=== PATIENT | female | born 1990 | race Two or more races ===

== ENCOUNTER 2023-03-26 06:42 | Day surgery (SDC) | payer OTHER, SELFPAY ==
[2023-03-26] VITALS (34 sets, daily range): BP systolic 101–132; BP diastolic 55–78; PULSE 63–94; RESP 14–16; TEMP 36.5–36.9; O2SAT 95–99; BMI 35.0
--- NOTE | 2023-03-26 07:11 | CRLHL7_ITS ---
For Patients: As a result of the Cures Act, medical imaging exams and procedure reports are released immediately into your electronic medical record. You may view this report before your referring provider. If you have questions, please contact your health care provider. INDICATION: Postprandial right upper quadrant pain. TECHNIQUE: Ultrasound abdomen limited. Sonographic images of the right upper quadrant were obtained using angel-scale and color Doppler images. COMPARISON: Reference is made to recent prior abdominal CT report dated 02/25/2023 which is not available for direct comparison at the time of this dictation. FINDINGS: Liver: Diffuse mildly increased hepatic parenchymal echotexture consistent with hepatic steatosis.. No suspicious masses. No intrahepatic biliary dilatation. Gallbladder: Nonmobile 19 mm stone in the region of the gallbladder neck. Negative sonographic Blevins`s sign. Normal wall thickness. No pericholecystic fluid. Common bile duct: 6 mm. Pancreas: Unremarkable. Right kidney: Normal in size. Normal echotexture and cortex. No suspicious masses, stones, or hydronephrosis. Vasculature: Proximal abdominal aorta and IVC are unremarkable. IMPRESSION: Nonmobile stone in the gallbladder neck. Negative sonographic Blevins`s sign. No other secondary findings to indicate acute cholecystitis. Top normal common bile duct caliber is 6 mm. Dictated by Kyle Peña MD @ 03/26/2023 8:05:08 AM (Electronically Signed)
[2023-03-26] MEDS: KETOROLAC 15 MG/ML inj IVP (07:20)
[2023-03-26] MEDS: ONDANSETRON 2 MG/ML inj 4 MG IVP (07:24)
--- NOTE | 2023-03-26 07:30 | ED_ITS ---
HPI - Abdominal Pain General Chief Complaint: Abdominal Pain <Noemi Valentin MD - Last Filed: 03/29/23 00:00> Stated Complaint: upper right side pain <Noemi Valentin MD - Last Filed: 03/29/23 00:00> Time Seen by Provider: 03/26/23 06:48 <Noemi Valentin MD - Last Filed: 03/29/23 00:00> Source: patient <Noemi Valentin MD - Last Filed: 03/29/23 00:00> Mode of arrival: ambulatory <Noemi Valentin MD - Last Filed: 03/29/23 00:00> Limitations: no limitations <Noemi Valentin MD - Last Filed: 03/29/23 00:00> History of Present Illness HPI narrative: 33-year-old female presents the emergency department with pain that has been bothersome since 1:00 p.m. yesterday, about 18 hours. She reports that after lunch, she started having pain in the right posterior shoulder area, accompanied by nausea. It worsened further after she ate a cupcake and has been persistent ever since. There is no vomiting, no diarrhea. She does have some epigastric burning pain with this. She had extensive workup at [address] and I a.m. able to review those notes. Similar symptoms 1 month ago though the pain was more epigastric at the time. Ultimately her labs looked great, she was discharged after a CT scan on daily omeprazole and p.r.n. famo tidine which she has been using. She states that with those medications the epigastric area burning pain has completely gone away but the shoulder area pain persists but is quite intermittent. The CT scan did show that she had gallstones though no evidence of acute cholecystitis at that time. The rest of the CT findings were significant only for a slightly enlarged appendix which was thought to be an incidental finding, as she was not symptomatic in the lower pelvis nor is she today. She notes no dysuria, no diarrhea, no bleeding, no gynecological complaints. No cardiac symptoms. She has not tried taking any Tylenol or ibuprofen to help with her symptoms. She did try some Maalox, based on the instructions provided from the previous ED visit and this was not helpful for her. Past medical history is benign per her report, no major long-term health problems. Her only home medication is the daily omeprazole which she has continued to use and the p.r.n. famotidine which she has used a few times. She has had a wisdom tooth extraction but it sounds as though was not done under general anesthesia but rather with just laughing gas. She does have a family history of gallbladder disease, including in her mother. No anticoagulants. No prior history of anesthesia complications which she does not believe she has ever had general anesthesia. ROS is notable for the musculoskeletal and GI symptoms as described above, otherwise denies times 12 systems including any respiratory symptoms. <Noemi Valentin MD - Last Filed: 03/29/23 00:00> Related Data Home Medications: Home Medications Medication Instructions Recorded Confirmed famotidine 20 mg tablet 20 mg PO BID 03/26/23 03/26/23 omeprazole 20 mg capsule,delayed 20 mg PO DAILY 03/26/23 03/26/23 release Previous Rx's Medication Instructions Recorded hydrocodone 5 mg-acetaminophen 325 1 - 2 tab PO Q6H PRN Pain #20 tabs 03/26/23 mg tablet <Noemi Valentin MD - Last Filed: 03/29/23 00:00> Allergies/Adverse Reactions: Allergies Allergy/AdvReac Type Severity Reaction Status Date / Time minocycline [From Minocin] AdvReac Verified 03/26/23 06:58 <Noemi Valentin MD - Last Filed: 03/29/23 00:00> [facility] Medical History: Medical History GERD (gastroesophageal reflux disease) ?K21.9 - Gastro-esophageal reflux disease without esophagitis (ICD-10) LGSIL (low grade squamous intraepithelial dysplasia) ADAL I (cervical intraepithelial neoplasia I) ?N87.0 - Mild cervical dysplasia (ICD-10) Genital herpes ?A60.00 - Herpesviral infection of urogenital system, unspecified (ICD-10) ASCUS with positive high risk HPV <Noemi Valentin MD - Last Filed: 03/29/23 00:00> Surgical History: Surgical History History of colposcopy ?Z98.890 - Other specified postprocedural states (ICD-10) <Noemi Valentin MD - Last Filed: 03/29/23 00:00> Social History: Social History (Updated 03/26/23 @ 10:02 by Bushra Torres MD) Narrative: She does not drink alcohol. 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 Smoking Status: Never smoker Second hand tobacco smoke exposure: No How often do you have a drink containing alcohol: never How often do you have six or more drinks on one occasion: Never AUDIT-C Alcohol total score: 0 Non-prescribed substance use: denies use <Noemi Valentin MD - Last Filed: 03/29/23 00:00> Exam Const: Vital Signs, click to edit/add: Vital Signs - 24 hr 03/26/23 06:53 03/26/23 09:00 Temperature 98.0 F Pulse Rate [Left P ulse Oximeter] 82 78 Respiratory Rate 16 16 Blood Pressure [Ri ght Upper Arm] 132/78 108/55 L Pulse Oximetry 98 99 Oxygen Delivery Me thod Room Air Room Air <Noemi Valentin MD - Last Filed: 03/29/23 00:00> Vital Signs, click to edit/add: Vital Signs - 24 hr 03/26/23 06:53 03/26/23 09:00 Temperature 98.0 F Pulse Rate [Left P ulse Oximeter] 82 78 Respiratory Rate 16 16 Blood Pressure [Ri ght Upper Arm] 132/78 108/55 L Pulse Oximetry 98 99 Oxygen Delivery Me thod Room Air Room Air <Kyrie King MD - Last Filed: 03/26/23 09:20> Documenting provider has reviewed patient's vital signs: yes <Noemi Valentin MD - Last Filed: 03/29/23 00:00> Common normals: no apparent distress <Noemi Valentin MD - Last Filed: 1 00:00> General appearance: cooperative and well kempt <Noemi Valentin MD - Last Filed: 03/29/23 00:00> Other: Good historian. <MD Janice Levi Last Filed: 03/29/23 00:00> HENMT: Common normals: normocephalic <MD Janice Levi Last Filed: 03/29/23 00:00> Head and scalp: normocephalic <MD Janice Levi Last Filed: 03/29/23 00:00> Mouth: oral and palatal mucosa normal <MD Janice Levi Last Filed: 03/29/23 00:00> Throat: posterior oropharynx normal <MD Janice Levi Last Filed: 03/29/23 00:00> Eye: Common normals: conjunctivae normal <MD Janice Levi Last Filed: 03/29/23 00:00> General eye: normal appearance of both eyes <MD Janice Levi Last Filed: 03/29/23 00:00> Conjunctiva: conjunctiva(e) normal <MD Janice Levi Last Filed: 03/29/23 00:00> Neck & C-Spine: Common normals: no lymphadenopathy <MD Janice Levi Last Filed: 03/29/23 00:00> General: normal visual inspection <MD Janice Levi Last Filed: 03/29/23 00:00> Resp: Common normals: normal respiratory effort, no use of accessory muscles and clear to auscultation bilaterally <MD Janice Levi Last Filed: 03/29/23 00:00> Effort & inspection: able to speak in complete sentences <MD Janice Levi Last Filed: 03/29/23 00:00> Auscultation: clear to auscultation bilaterally <MD Janice Levi Last Filed: 03/29/23 00:00> Cardio: Common normals: regular rate, regular rhythm, S1 normal heart sound, S2 normal heart sound and no murmurs <MD Janice Levi Last Filed: 03/29/23 00:00> Rate: regular rate <MD Janice Levi Last Filed: 03/29/23 00:00> Rhythm: regular rhythm <MD Janice Levi Last Filed: 03/29/23 00:00> Heart sounds: S1 normal and S2 normal <MD Janice Levi Last Filed: 03/29/23 00:00> GI: Common normals: Normal to inspection, nondistended, normoactive bowel sounds present, soft to palpation, no hepatosplenomegaly and no masses <MD Janice Levi Last Filed: 03/29/23 00:00> Palpation: soft and no hepatosplenomegaly <MD Janice Levi Last Filed: 03/29/23 00:00> Other: Tender palpation of right upper quadrant, mildly positive Blevins sign for me. No obvious mass <MD Janice Levi Last Filed: 03/29/23 00:00> : Common normals: no CVA tenderness <MD Janice Levi Last Filed: 03/29/23 00:00> Bladder/kidney exam: no CVA tenderness <MD Janice Levi Last Filed: 03/29/23 00:00> Back & Pelvis: Common normals: no CVA tenderness <MD Janice Levi Last Filed: 03/29/23 00:00> Extremity: Common normals: normal to inspection <MD Janice Levi Last Filed: 03/29/23 00:00> Neuro: Speech: speech normal <MD Janice Levi Last Filed: 03/29/23 00:00> Gait (neuro): normal gait <MD Janice Levi Last Filed: 03/29/23 00:00> Motor exam: no tremor noted <MD Janice Levi Last Filed: 03/29/23 00:00> Psych: Common normals: speech normal <MD Jancie Levi Last Filed: 03/29/23 00:00> Appearance: well kempt <MD Janice Levi Last Filed: 03/29/23 00:00> Activity/motor behavior: appropriate eye contact <Noemi Valentin MD - Last Filed: 03/29/23 00:00> Speech: normal speech <Noemi Valentin MD - Last Filed: 03/29/23 00:00> Mood and affect: euthymic mood <Noemi Valentin MD - Last Filed: 03/29/23 00:00> Insight: insight good <Noemi Valentin MD - Last Filed: 03/29/23 00:00> Judgement: judgment good <Noemi Valentin MD - Last Filed: 03/29/23 00:00> Skin: Common normals: no rashes or lesions noted <Noemi Valentin MD - Last Filed: 03/29/23 00:00> General skin exam: no rashes or lesions noted <Noemi Valentin MD - Last Filed: 03/29/23 00:00> Course Course ED Course: Differential diagnosis including pancreatitis, cholecystitis, choledocholithiasis, biliary dyskinesia, GERD, constipation, colitis, appendicitis, among others. Suspect gallbladder disease most likely. Recommend abdominal ultrasound. Will be given Zofran and Toradol for pain control, IV will be placed. Basic screening labs. Await findings. Will be handing care of patient off to my in coming day shift partner. <Noemi Valentin MD - Last Filed: 03/29/23 00:00> Reevaluation(s) Time of Reevaluation #1: 08:17 <Noemi Valentin MD - Last Filed: 03/29/23 00:00> Reevaluation #1: Discussed plan of care with patient. Symptomatic gallstone in gallbladder neck noted. Discussed with surgeon on-call. Surgeon will come talk with patient and discuss procedure. Patient comfortable at this time. I will hand over care to my in coming day shift partner. Anticipate that she will be undergoing cholecystectomy. NPO. Pain improved with Toradol and Zofran. <Noemi Valentin MD - Last Filed: 03/29/23 00:00> Time of Reevaluation #2: 09:18 <Kyrie King MD - Last Filed: 03/26/23 09:20> Reevaluation #2: Surgeon Dr. Torres came to assess and anticipates going to the OR shortly for cholecystectomy. <Kyrie King MD - Last Filed: 03/26/23 09:20> Vital Signs Vital signs: Initial Vital Signs Temperature 98.0 F 03/26/23 06:53 Temperature Source Temporal Artery Scan 03/26/23 06:53 Pulse Rate 82 03/26/23 06:53 Respiratory Rate 16 03/26/23 06:53 Blood Pressure 132/78 03/26/23 06:53 Blood Pressure Mean 96 03/26/23 06:53 Blood Pressure Position Sitting 03/26/23 06:53 Pulse Oximetry 98 03/26/23 06:53 Oxygen Delivery Method Room Air 03/26/23 06:53 Vital Signs Temperature 98.0 F 03/26/23 06:53 Pulse Rate 82 03/26/23 06:53 Respiratory Rate 16 03/26/23 06:53 Blood Pressure 132/78 03/26/23 06:53 Pulse Oximetry 98 03/26/23 06:53 Oxygen Delivery Method Room Air 03/26/23 06:53 Temperature 97.7 F 03/26/23 12:20 Pulse Rate 75 03/26/23 13:45 Respiratory Rate 16 03/26/23 13:45 Blood Pressure 108/66 03/26/23 13:45 Pulse Oximetry 98 03/26/23 13:45 Oxygen Delivery Method Room Air 03/26/23 13:45 <Noemi Valentin MD - Last Filed: 03/29/23 00:00> Initial Vital Signs Temperature 98.0 F 03/26/23 06:53 Temperature Source Temporal Artery Scan 03/26/23 06:53 Pulse Rate 82 03/26/23 06:53 Respiratory Rate 16 03/26/23 06:53 Blood Pressure 132/78 03/26/23 06:53 Blood Pressure Mean 96 03/26/23 06:53 Blood Pressure Position Sitting 03/26/23 06:53 Pulse Oximetry 98 03/26/23 06:53 Oxygen Delivery Method Room Air 03/26/23 06:53 Vital Signs Temperature 98.0 F 03/26/23 06:53 Pulse Rate 82 03/26/23 06:53 Respiratory Rate 16 03/26/23 06:53 Blood Pressure 132/78 03/26/23 06:53 Pulse Oximetry 98 03/26/23 06:53 Oxygen Delivery Method Room Air 03/26/23 06:53 Temperature 97.7 F 03/26/23 12:20 Pulse Rate 75 03/26/23 13:45 Respiratory Rate 16 03/26/23 13:45 Blood Pressure 108/66 03/26/23 13:45 Pulse Oximetry 98 03/26/23 13:45 Oxygen Delivery Method Room Air 03/26/23 13:45 <Kyrie King MD - Last Filed: 03/26/23 09:20> MDM - Abdominal Pain Medical Records Attestation: I reviewed the patient's medical records. <Noemi Valentin MD - Last Filed: 03/29/23 00:00> Medical records narrative: From [place] [id number] ED <Noemi Valentin MD - Last Filed: 03/29/23 00:00> Lab Data Attestation: I reviewed the patient's lab results. <Noemi Valentin MD - Last Filed: 03/29/23 00:00> Lab results narrative: Mildly elevated AST, ALT. No other evidence of inflammation or leukocytosis. No pancreatitis. <Noemi Valentin MD - Last Filed: 03/29/23 00:00> Labs: Lab Results 03/26/23 Range/Units 07:20 WBC 8.93 (4.50-11.00) K/uL RBC 5.07 (4.00-5.20) m/uL Hgb 13.6 (12.0-16.0) gm/dL Hct 42.2 (33.0-51.0) % MCV 83 (80-100) fL MCH 27 (26-34) pg MCHC 32 (32-36) gm/dL RDW Coeff of Greg 13.2 (11.5-15.5) % Plt Count 422 (140-440) K/uL Neut % (Auto) 71.2 (42.0-72.0) % Lymph % (Auto) 22.7 (20-44) % [place] % (Auto) 4.8 (0.0-11.0) % Eos % (Auto) 1.0 (0.0-7.0) % Baso % (Auto) 0.2 (0.0-3.0) % Neut # (Auto) 6.35 (1.7-7.0) K/uL Lymph # (Auto) 2.03 (0.90-2.90) K/uL [place] # (Auto) 0.40 (0.00-0.90) K/UL Eos # (Auto) 0.09 (0.00-0.50) K/uL Baso # (Auto) 0.02 (0.00-0.30) K/uL Abs Immat Gran (auto) 0.01 (0.00-0.30) K/uL Imm/Tot Granulo (auto) 0.1 % Sodium 139 (135-149) mmol/L Potassium 4.0 (3.6-5.1) mmol/L Chloride 105 (96-114) mmol/L Carbon Dioxide 26 (20-32) mmol/L Anion Gap 8 (7-15) mEq/L BUN 7 (5-24) mg/dL Creatinine 0.6 (0.5-1.5) mg/dL Estimated Creat Clear 100.63 Estimated GFR 121 ml/min Glucose 94 (60-115) mg/dL Calcium 9.4 (8.4-10.6) mg/dL Total Bilirubin 0.7 (0.1-1.5) mg/dL AST 56 H (12-35) U/L ALT 75 H (4-35) U/L Alkaline Phosphatase 100 (40-150) U/L C-Reactive Protein 0.6 (0.5-1.0) mg/dL Total Protein 7.9 (6.0-8.3) g/dL Albumin 4.5 (3.3-5.0) g/dL Lipase 40 (23-300) U/L <Noemi Valentin MD - Last Filed: 03/29/23 00:00> Lab Results 03/26/23 Range/Units 07:20 WBC 8.93 (4.50-11.00) K/uL RBC 5.07 (4.00-5.20) m/uL Hgb 13.6 (12.0-16.0) gm/dL Hct 42.2 (33.0-51.0) % MCV 83 (80-100) fL MCH 27 (26-34) pg MCHC 32 (32-36) gm/dL RDW Coeff of Greg 13.2 (11.5-15.5) % Plt Count 422 (140-440) K/uL Neut % (Auto) 71.2 (42.0-72.0) % Lymph % (Auto) 22.7 (20-44) % [place] % (Auto) 4.8 (0.0-11.0) % Eos % (Auto) 1.0 (0.0-7.0) % Baso % (Auto) 0.2 (0.0-3.0) % Neut # (Auto) 6.35 (1.7-7.0) K/uL Lymph # (Auto) 2.03 (0.90-2.90) K/uL [place] # (Auto) 0.40 (0.00-0.90) K/UL Eos # (Auto) 0.09 (0.00-0.50) K/uL Baso # (Auto) 0.02 (0.00-0.30) K/uL Abs Immat Gran (auto) 0.01 (0.00-0.30) K/uL Imm/Tot Granulo (auto) 0.1 % Sodium 139 (135-149) mmol/L Potassium 4.0 (3.6-5.1) mmol/L Chloride 105 (96-114) mmol/L Carbon Dioxide 26 (20-32) mmol/L Anion Gap 8 (7-15) mEq/L BUN 7 (5-24) mg/dL Creatinine 0.6 (0.5-1.5) mg/dL Estimated Creat Clear 100.63 Estimated GFR 121 ml/min Glucose 94 (60-115) mg/dL Calcium 9.4 (8.4-10.6) mg/dL Total Bilirubin 0.7 (0.1-1.5) mg/dL AST 56 H (12-35) U/L ALT 75 H (4-35) U/L Alkaline Phosphatase 100 (40-150) U/L C-Reactive Protein 0.6 (0.5-1.0) mg/dL Total Protein 7.9 (6.0-8.3) g/dL Albumin 4.5 (3.3-5.0) g/dL Lipase 40 (23-300) U/L <Kyrie King MD - Last Filed: 03/26/23 09:20> Discharge Plan Discharge Clinical Impression: Choledocholithiasis <Noemi Valentin MD - Last Filed: 03/29/23 00:00> Patient Disposition: XFER to OR <Noemi Valentin MD - Last Filed: 03/29/23 00:00> Condition: Stable <Noemi Valentin MD - Last Filed: 03/29/23 00:00> Discharge Comment: taken to surgery at 1000 <Noemi Valentin MD - Last Filed: 03/29/23 00:00> taken to surgery at 1000 <Kyrie King MD - Last Filed: 03/26/23 09:20>
[2023-03-26 07:39] LABS: Basophils Absolute Auto 0.02 K/uL (0.00-0.30); Basophils Percent Auto 0.2 % (0.0-3.0); Eosinophils Absolute Auto 0.09 K/uL (0.00-0.50); Hematocrit 42.2 % (33.0-51.0); Hemoglobin* 13.6 gm/dL (12.0-16.0); Immature Granulocytes Abs Auto 0.01 K/uL (0.00-0.30); Immature Granulocytes Pct Auto 0.1 %; Lymphocytes Absolute Auto 2.03 K/uL (0.90-2.90); Lymphocytes Percent Auto 22.7 % (20-44); Mean Corpuscular HGB Conc 32 gm/dL (32-36); Mean Corpuscular Hemoglobin 27 pg (26-34); Mean Corpuscular Volume 83 fL (80-100); Monocytes Percent Auto 4.8 % (0.0-11.0); Neutrophils Absolute Auto 6.35 K/uL (1.7-7.0); Neutrophils Percent Auto 71.2 % (42.0-72.0); Platelet Count* 422 K/uL (140-440); RDW Coefficient of Variation % 13.2 % (11.5-15.5); Red Blood Count 5.07 m/uL (4.00-5.20); White Blood Count* 8.93 K/uL (4.50-11.00)
[2023-03-26 07:51] LABS: Slide Review Reflex No
[2023-03-26 08:00] LABS: Chloride* 105 mmol/L (96-114)
[2023-03-26 08:01] LABS: Albumin* 4.5 g/dL (3.3-5.0); Sodium* 139 mmol/L (135-149)
[2023-03-26 08:04] LABS: Alkaline Phosphatase* 100 U/L (40-150); Anion Gap 8 mEq/L (7-15); Aspartate Amino Transferase* 56 U/L (12-35); Bilirubin Total* 0.7 mg/dL (0.1-1.5); Blood Urea Nitrogen* 7 mg/dL (5-24); Carbon Dioxide* 26 mmol/L (20-32); Creatinine* 0.6 mg/dL (0.5-1.5); Est. Creatinine Clearance* 100.63; Estimated Glomerular Filt Rate 121 ml/min; Glucose* 94 mg/dL (60-115); Lipase* 40 U/L (23-300); Total Protein* 7.9 g/dL (6.0-8.3)
[2023-03-26 08:05] LABS: Alanine Aminotransferase* 75 U/L (4-35); Calcium* 9.4 mg/dL (8.4-10.6)
[2023-03-26 08:07] LABS: C Reactive Protein* 0.6 mg/dL (0.5-1.0)
--- NOTE | 2023-03-26 08:12 | PM.GSHP ---
History of Present Illness History of Present Illness Date Seen: 03/26/23 Chief complaint: upper right side pain Narrative: The patient is a 33-year-old female who presented to the emergency department with shoulder pain. She states that approximately 1 month ago she was seen at the ER in [place] with chest pain. Workup did reveal gallstones however was felt as though her symptoms were secondary to GERD. She was given omeprazole as well as famotidine to take p.r.n.. She then followed up with her primary care doctor who saw that she did have gallstones on CT. Since then she tried to change her diet, avoiding gluten, fatty foods and caffeine as well as chocolate. Yesterday she ate lunch in about 2 hours later developed pain in her back. This is primarily in her right shoulder. With this she occasionally has some right mid to upper quadrant abdominal pain. No change in bowel habits though they have been looser. She attributes this though to taking Tums. She tried taking Tums, Mylanta and the famotidine however this did not help her symptoms. She did have nausea as well yesterday. No fevers. She has some shortness of breath. No urinary symptoms. [facility] Medical History GERD (gastroesophageal reflux disease) ?K21.9 - Gastro-esophageal reflux disease without esophagitis (ICD-10) LGSIL (low grade squamous intraepithelial dysplasia) ADAL I (cervical intraepithelial neoplasia I) ?N87.0 - Mild cervical dysplasia (ICD-10) Genital herpes ?A60.00 - Herpesviral infection of urogenital system, unspecified (ICD-10) ASCUS with positive high risk HPV Surgical History History of colposcopy ?Z98.890 - Other specified postprocedural states (ICD-10) Social History (Updated 03/26/23 @ 10:02 by Bushra Torres MD) Narrative: She does not drink alcohol. 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 Smoking Status: Never smoker Second hand tobacco smoke exposure: No How often do you have a drink containing alcohol: never How often do you have six or more drinks on one occasion: Never AUDIT-C Alcohol total score: 0 Non-prescribed substance use: denies use Meds Home Medications and Allergies Home Medications Medication Instructions Recorded Confirmed Type famotidine 20 mg tablet 20 mg PO BID 03/26/23 03/26/23 History omeprazole 20 mg capsule,delayed 20 mg PO DAILY 03/26/23 03/26/23 History release Allergies Allergy/AdvReac Type Severity Reaction Status Date / Time minocycline [From Minocin] AdvReac Verified 03/26/23 06:58 Exam Narrative: Exam Narrative: General appearance: Alert, cooperative, and in no distress Eyes: PERRLA, eye lids clear, and sclera white HENT Head: Normocephalic Ears: External ears normal Pulmonary: Clear to auscultation bilaterally Cardiovascular Heart: Regular rate and rhythm Extremities: warm and well perfused Gastrointestinal Abdominal: No scars. No hernias. She is mildly tender in the right upper quadrant and mid abdomen. No guarding or rebound. Musculoskeletal: Extremities: Upper: Both upper extremities have normal joint range of motion and intact strength. Lower: Both lower extremities have normal joint range of motion and intact strength. Skin: Normal skin color, texture, and turgor. Neurologic: No focal deficits Psychiatric: Alert, oriented, cooperative, normal affect. Const: Vital Signs, click to edit/add: Vital Signs - 24 hr 03/26/23 06:53 Temperature 98.0 F Pulse Rate [Left P ulse Oximeter] 82 Respiratory Rate 16 Blood Pressure [Ri ght Upper Arm] 132/78 Pulse Oximetry 98 Oxygen Delivery Me thod Room Air Results Results Labs: White blood cell count is normal AST and ALT are mildly elevated at 56 and 75. The remainder of LFTs are normal. Lipase is normal. CRP is normal. Abdominal ultrasound report/results: report reviewed and image reviewed Additional studies: TECHNIQUE: Ultrasound abdomen limited. Sonographic images of the right upper quadrant were obtained using angel-scale and color Doppler images. COMPARISON: Reference is made to recent prior abdominal CT report dated 02/25/2023 which is not available for direct comparison at the time of this dictation. FINDINGS: Liver: Diffuse mildly increased hepatic parenchymal echotexture consistent with hepatic steatosis.. No suspicious masses. No intrahepatic biliary dilatation. Gallbladder: Nonmobile 19 mm stone in the region of the gallbladder neck. Negative sonographic Blevins`s sign. Normal wall thickness. No pericholecystic fluid. Common bile duct: 6 mm. Pancreas: Unremarkable. Right kidney: Normal in size. Normal echotexture and cortex. No suspicious masses, stones, or hydronephrosis. Vasculature: Proximal abdominal aorta and IVC are unremarkable. IMPRESSION: Nonmobile stone in the gallbladder neck. Negative sonographic Blevins`s sign. No other secondary findings to indicate acute cholecystitis. Top normal common bile duct caliber is 6 mm. Dictated by Kyle Peña MD @ 03/26/2023 8:05:08 A Assessment and Plan Assessment and plan (1) Cholelithiasis: Status: Acute (2) Choledocholithiasis: Status: Acute Plan The patient is a 33-year-old female who has likely early cholecystitis and possible choledocholithiasis. I explained that the treatment for this is laparoscopic cholecystectomy. We discussed the procedure as well as risks and benefits of surgery which include bleeding, infection, bile leak, conversion to open or injury to other structures, specifically the common bile duct. We also discussed recovery. Because of the patient's elevated liver enzymes and dilated common bile duct, I explained that there is concern for choledocholithiasis. We discussed an intraoperative cholangiogram followed by attempts to remove the stone by either flushing or laparoscopic common bile duct exploration. They understand that if unsuccessful, an ERCP may be necessary. She is agreeable to proceed and we will plan on surgery today.
--- NOTE | 2023-03-26 09:02 | ED.NURSE ---
Dr. Torres in speaking with patient.
--- NOTE | 2023-03-26 09:58 | W.ANESCHARGE ---
Anesthesia Charges Start Date/Time Anesthesia Start Date: 03/26/23 Anesthesia Start Time: 10:10 Stop Date/Time Anesthesia Stop Date: 03/26/23 Anesthesia Stop Time: 11:52
--- NOTE | 2023-03-26 10:00 | CRLHL7_ITS ---
For Patients: As a result of the Century Cures Act, medical imaging exams and procedure reports are released immediately into your electronic medical record. You may view this report before your referring provider. If you have questions, please contact your health care provider. INDICATION : Laparoscopic cholecystectomy. TECHNIQUE : Intraoperative cholangiogram. Contrast injected via gallbladder neck and cystic duct. FINDINGS : Fluoroscopy time was 34.7 seconds. 3 images were obtained. IMPRESSION : Normal caliber intra and extrahepatic ducts. No filling defects. Contrast seen within the duodenum. Normal intraoperative cholangiogram. Dictated by Kyrie Hood MD @ 03/26/2023 11:34:16 AM (Electronically Signed)
[2023-03-26] MEDS: LACTATED RINGERS 1000 ML 1,000 ML 75 ML IV (10:10)
--- NOTE | 2023-03-26 10:19 | ED.NURSE ---
Patient brought to surgery center.
[2023-03-26] MEDS: CEFAZOLIN 2 GM INJ IVP (10:25)
[2023-03-26] MEDS: 0.9% SODIUM CHL 50 ML VIAL INJECTION (11:10)
[2023-03-26] MEDS: iopamidoL 50 ML VIAL INJECTION (11:10)
[2023-03-26] MEDS: BUPIVACAINE 0.25% 30 ML INJECTION (11:30)
--- NOTE | 2023-03-26 11:52 | W.ANESCHARGE ---
Anesthesia Charges Start Date/Time Anesthesia Start Date: 03/26/23 Anesthesia Start Time: 10:10 Stop Date/Time Anesthesia Stop Date: 03/26/23 Anesthesia Stop Time: 11:52
--- NOTE | 2023-03-26 11:57 | PM.GSPRC ---
Operative Note Pre-op diagnosis: 1. Acute cholecystitis 2. possible choledocholithiasis Post-op diagnosis: Acute cholecystitis Type of Procedure: 1. Laparoscopic cholecystectomy 2. Intraoperative cholangiogram Indications: The patient is a 33-year-old female who presented to the emergency department with severe right shoulder pain as well as right middle abdominal pain. Workup revealed a stone stuck in her gallbladder neck as well as mild common bile duct dilatation and elevated AST and ALT. I recommended cholecystectomy as well as cholangiogram given her symptom profile, bile duct dilatation and mildly elevated transaminases. She agreed to proceed. Procedure Description: After discussing the risks and benefits of the procedure, the patient signed informed consent.? The operative site was marked and the patient was brought to the operating room and placed on the operating table in supine position.? Care was taken to pad the patient's pressure points.?? The patient was then intubated by anesthesia.?? The operative site was then prepped and draped in the usual sterile fashion.? A time-out was then performed. Entrance to the abdomen was gained via a 5 mm Visiport in the left upper quadrant. The abdomen was insufflated and briefly surveyed for signs of injury. There was none. A 10 mm umbilical port was placed as well as 2 working ports along the right costal margin, all under direct vision. The patient was then placed in reverse Trendelenburg position with the right side up. The gallbladder was distended. A needle was used to aspirate clear bile from the gallbladder. Once the gallbladder was decompressed, the fundus was grasped and retracted cephalad. The gallbladder was edematous. The infundibulum was grasped. There was a large stone stuck in the infundibulum. A combination of hook cautery and blunt dissection was used to carefully dissect out the cystic duct and artery until they could clearly be seen entering the gallbladder without any intervening structures. The gallbladder was dissected off the cystic plate to achieve the critical view. Once this was achieved the cystic artery was clipped with 2 clips proximally and 1 clip distally and transected with the scissors. A clip was then placed on the proximal cystic duct and a ductotomy was created. A cholangiocatheter was advanced into the abdomen and placed in the cystic duct. A saline leak test was performed which was negative. Fluoroscopy was then brought onto the field and tracks was then injected into the biliary tree. This showed filling of the right and left hepatic ducts, common bile duct and brisk filling of the duodenum without filling defects noted. Once this was done the cholangiocatheter was removed. Two clips were placed on the distal cystic duct and the duct was transected with scissors. The gallbladder was then taken off of the liver bed and removed from the abdomen using an Endo-Catch bag. The gallbladder bed was surveyed for hemostasis which appeared adequate. A small amount of bile which had spilled was suctioned from the abdomen. The remaining ports were then removed and the abdomen desufflated. The umbilical port fascia was closed with 0 Vicryl. The skin was closed with absorbable subcuticular suture. Sterile dressings were then applied. Instrument sponge and needle counts were correct at the end of the case. The patient was then woken and transferred to the PACU in stable condition. The patient tolerated the procedure well. Findings: Acute cholecystitis. No evidence of choledocholithiasis on cholangiogram. Anesthesia: GETA Surgeon: Bushra Torres MD Estimated blood loss (mL): 5 Specimen: Gallbladder Condition: stable Disposition: PACU Date of procedure: 03/26/23
== END 2023-03-26 14:05 | disposition home or self-care (01) ==
LOC: ED 09:50 → OR 09:55
PROVIDERS: Emergency Provider Family Medicine; PCP Physician Assistant; Visit Provider Surgery
PROC: 0FT44ZZ Resection of Gallbladder, Percutaneous Endoscopic Approach (ICD-10-PCS; CPT 47563; principal; 2023-03-26 10:00)
DX: K80.12 Calculus of gallbladder with acute and chronic cholecystitis without obstruction (principal); K21.9 Gastro-esophageal reflux disease without esophagitis
CPT/HCPCS: 47563; 00790; 36415; 74300; 76000; 76705; 80053; 81003; 81025; 83690; 85025; 86140; 88304; 99284; J0330; J0665; J0690; J1100; J1885; J2405; J2704; J2710; J3010; J7120; Q9967